=== PATIENT | male | born 1945 | race Caucasian/White ===

== ENCOUNTER 2023-07-02 13:21 | Emergency (ER) | payer MEDICARE, SELFPAY ==
[2023-07-02 13:32] VITALS: BP 138/69
[2023-07-02 14:19] VITALS: BMI 31.1
[2023-07-02 14:20] LABS: % Basophils 0.8 % (0-2); % Eosinophils 0.7 % (0-6); % Immature Granulocytes 0.3 % (0-0.5); % Lymphocytes 30.9 % (20.5-51.1); % Monocytes 7.9 % (1.7-9.3); % Neutrophils 59.4 % (42.2-75.2); Absolute Basophils 0.1 10^3/uL (0-0.2); Absolute Lymphocytes 1.9 10^3/uL (1.2-3.4); Absolute Monocytes 0.5 10^3/uL (0.1-0.6); Absolute Neutrophils 3.6 10^3/uL (1.4-6.5); Hemoglobin 14.6 g/dL (13.0-18.0); Mean Corp Hgb Conc. 36.5 g/dL (33.0-37.0); Mean Corpuscular Hgb 32.4 pg (27.0-31.0); Mean Corpuscular Volume 88.9 fL (80.0-94.0); Mean Platelet Volume 9.3 fL (7.4-10.4); Nucleated Red Blood Cells % 0 % (-); Platelet Count 174 10^3/uL (130-400); Red Cell Dist. Width 12.6 % (11.5-14.5); White Blood Cell Count 6.1 10^3/uL (4.8-10.8)
--- NOTE | 2023-07-02 14:26 | ED.GENMED ---
History of Present Illness
<Eden Marti PA-C - Last Filed: 07/02/23 19:08>
General
Chief Complaint: Fainting/Passed Out
Source: patient
Exam Limitations: none
Time Seen by Provider: 07/02/23 13:48
Nursing documentation reviewed up to this point in time: agreed with
Travel History
Have you had any contact with someone who has COVID-19?: No
Do you have any symptoms of coronavirus? Fever > 100 degrees, chills, cough, shortness of breath, sore throat, loss of taste or smell, muscle aches, or headache?: No
History of Present Illness
History of Present Illness:
pt is a 78 y/o M with ho moderate (followed by JONELLE osorio)
here with syncope x 2
pt says at 5 am he returned from using the bathroom and felt lightheaded and thinks he passed out into the bed, so no injury; he says he went to sleep and a little while later turned over in the bed and felt almost a near syncope like feeling of
nearly passing out
his who was next to him was unaware of these 2 events. he ahd no preceding cp, sob, headache, vision changes and now he feels well
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
no cp, sob, vomiting, diarrhea
he has been taking some 'natural laxative' to help with constipation the past few days
he isn't sure what it is
he hasn't had diarrhea from it
otherwise eaitng/drinkign normally and no deydration symptoms
Past History
<Eden Marti PA-C - Last Filed: 07/02/23 19:08>
Past History
ED Past Medical History: Hypercholesterolemia and Other (Artificial left eye)
ED Past Surgical History: Orthopedic
Social History
Tobacco: Non-smoker
Personal:
Employment: Retired
Family History
Family History: Other
Review of Systems
<Eden Marti PA-C - Last Filed: 07/02/23 19:08>
Review of Systems
Allergies reviewed?: Yes
All Other Systems: Not applicable
Phy Exam
<Eden Marti PA-C - Last Filed: 07/02/23 19:08>
Physical Exam
Physical Exam:
GENERAL: Alert , in no apparent distress
EYE: LEFT EYE PROSTHESIS
NECK: Supple
ENT: o/p clr, mmm.
CARDIAC + SYSTOLIC MURMUR 2/6
IRREGULAR
NO EDEMA
LUNGS: Clear breath sounds bilaterally, no acute respiratory distress, no wheezes/rales/rhonchi
ABDOMEN: Soft, without focal tenderness, no r/g, no cvat, normal bowel sounds
NEUROLOGICAL: Alert and oriented, no focal neuro deficits
SKIN: Warm and dry, skin intact.
MUSCULOSKELETAL: No edema, well perfused. neg minnie's sign
PSYCH: Normal and appropriate interaction.
Course
<Eden Marti PA-C - Last Filed: 07/02/23 19:08>
Orders/Labs/Results
Orders:
Orders
07/02/23 13:35
EKG [Electrocardiogram (*1)] Urgent
Reason for Study: Vertigo / Dizzy
07/02/23 13:36
EKG- Treatment ONCE
07/02/23 14:11
Complete Blood Count/With Diff Urgent
Comprehensive Metabolic Panel Urgent
Magnesium Urgent
Comment: ADD ON
TSH Reflex To Free T4 Urgent
Comment: ADD ON
Troponin I Urgent
07/02/23 14:30
Add On- LAB Urgent
Tests Added?: magnesium
07/02/23 14:38
Orthostatic VS- Treatment ONCE
07/02/23 14:39
Add On- LAB Urgent
Tests Added?: tsh free t4
07/02/23 14:46
0.9% Sodium Chloride 500 ml [Nss] 500 ml IV BOLUS
Abnormal Lab Results
07/02/23
14:11
RBC 4.50 L 10^6/uL
(4.70-6.10)
MCH 32.4 H pg
(27.0-31.0)
Carbon Dioxide 20 L mmol/L
(22-30)
BUN 27 H mg/dl
(9-20)
07/02/23 14:11
07/02/23 14:11
Vital Signs
Initial and Last Documented VS:
Initial Vital Signs
Temp Pulse Resp BP Pulse Ox
98.7 F 72 18 138/69 95
07/02/23 13:32 07/02/23 13:32 07/02/23 13:32 07/02/23 13:32 07/02/23 13:32
Last Documented Vital Signs
Temp Pulse Resp BP Pulse Ox
98.7 F 64 26 132/79 97
07/02/23 13:32 07/02/23 16:00 07/02/23 16:00 07/02/23 16:00 07/02/23 16:00
<Omid Grant, DO - Last Filed: 07/02/23 16:23>
Orders/Labs/Results
Orders:
Orders
07/02/23 13:35
EKG [Electrocardiogram (*1)] Urgent
Reason for Study: Vertigo / Dizzy
07/02/23 13:36
EKG- Treatment ONCE
07/02/23 14:11
Complete Blood Count/With Diff Urgent
Comprehensive Metabolic Panel Urgent
Magnesium Urgent
Comment: ADD ON
TSH Reflex To Free T4 Urgent
Comment: ADD ON
Troponin I Urgent
07/02/23 14:30
Add On- LAB Urgent
Tests Added?: magnesium
07/02/23 14:38
Orthostatic VS- Treatment ONCE
07/02/23 14:39
Add On- LAB Urgent
Tests Added?: tsh free t4
07/02/23 14:46
0.9% Sodium Chloride 500 ml [Nss] 500 ml IV BOLUS
Abnormal Lab Results
07/02/23
14:11
RBC 4.50 L 10^6/uL
(4.70-6.10)
MCH 32.4 H pg
(27.0-31.0)
Carbon Dioxide 20 L mmol/L
(22-30)
BUN 27 H mg/dl
(9-20)
07/02/23 14:11
07/02/23 14:11
Vital Signs
Initial and Last Documented VS:
Initial Vital Signs
Temp Pulse Resp BP Pulse Ox
98.7 F 72 18 138/69 95
07/02/23 13:32 07/02/23 13:32 07/02/23 13:32 07/02/23 13:32 07/02/23 13:32
Last Documented Vital Signs
Temp Pulse Resp BP Pulse Ox
98.7 F 64 26 132/79 97
07/02/23 13:32 07/02/23 16:00 07/02/23 16:00 07/02/23 16:00 07/02/23 16:00
<Eden Marti PA-C - Last Filed: 07/02/23 19:08>
MDM/Problems Addressed
Differential Diagnosis Includes:
near syncope, vasovagal episode, dizziness
MDM/Problems Addressed:
78 y/o M with near syncope today - after walking to the bathroom and back tob ed
do not suspect full LOC
also felt lightheaded while turning in bed
now feels wel
has h/o PVCs frequently and doesn't feel symptoms from them
also has moderate
pt is well appearing
with orthostatic testing, pt did have elevated HR with standing, but bp did ont drop
givne ivf
labs apprecaited, mag normal, tsh normal, trop neg
seen by dr. grant
felt stable for d/c unlikely to be concerning dysrhtyhmia causing near syncope
fu with cards
<Eden Marti PA-C - Last Filed: 07/02/23 19:08>
*Critical Care Note
Total Time (30-74mins, 75-104mins- exclusive of procedures): Not Applicable
ED Attending Note
<Eden Marti PA-C - Last Filed: 07/02/23 19:08>
-
Portions of this chart may have been created with voice recognition software.� Occasional wrong word or��sound alike� substitutions may have occurred due to the inherent limitations of voice recognition software.
<Omid Grant DO - Last Filed: 07/02/23 16:23>
ED Attending Note
Patient seen and examined by attending physician: Yes
I performed the substantive portion of visit, reviewed & personally made and approve the management plan that is documented in note by myself or EMILY.: Yes
Discharge Plan
Departure
Patient Disposition: Home (Routine Discharge)
Date of Disposition: 07/02/23
Time of Disposition: 16:27
Patient with high blood pressure during this ER visit?: No
Condition: Fair
Covid-19: Not Applicable
Discharge Problem:
Near syncope, Premature ventricular contractions (PVCs) (VPCs)
Instructions: Palpitations (DC), Near Fainting (DC)
Prescriptions:
No Action
atorvastatin 80 mg Tablet
80 mg PO HS
levothyroxine [L-Thyroxine] 50 mcg Tablet
50 mcg PO DAILY
diltiazem HCl 120 mg Tablet Extended Release 24 Hr
120 mg PO DAILY
[place] Oil Capsule
2,000 mg PO DAILY
Glucosamine Chondroitin
2 tab PO DAILY
Referrals:
Charissa Lewis, [Family Provider] - Follow up in 2-3 days
Activity Restrictions/Additional Instructions:
YOUR BLOOD WORK WAS REASSURING
YOU HAD FREQUENT PVCS (EXTRA BEATS) BUT NO SIGNS OF CONCERNING DYSRHYTHMIA. WE GAVE YOU SOME FLUIDS IN CASE YOU WERE SLIGHTLY DEHYDRATED
BE SURE TO SIT ON THE SIDE OF THE BED BEFORE GETTING UP QUICKLY
FOLLOW UP WITH JONELLE OSORIO
RETURN FOR REPEATED EPISODES, VOMITING, CHEST PAIN, SHORTNESS OF BREATH, OR ANY CONCERNS.
AVOID THE LAXATIVE IN CASE THIS IS CAUSING PROBLEMS.
Interventions
Interventions:
*Risk Screen - Suicide Last Done: 07/02/23 14:52
*General Assessment Last Done: 07/02/23 13:32
*Neglect/Abuse Screening Last Done: 07/02/23 14:52
ED- Fall Risk Assessment Last Done: 07/02/23 16:42
*ED COVID-19 Vaccine History Last Done: 07/02/23 13:32
*Nursing Disposition Last Done: 07/02/23 16:42
ED- Cardiac Assessment Last Done: 07/02/23 14:08
ED- Neurological Assessment Last Done: 07/02/23 14:08
Discharge Date and Time
Discharge Date/Time: 07/02/23 16:43
[2023-07-02 14:31] LABS: ALT (SGPT) 25 U/L (0-50); AST (SGOT) 24 U/L (17-59); Albumin 4.2 g/dl (3.5-5.0); Alkaline Phosphatase 71 U/L (38-126); Blood Urea Nitrogen 27 mg/dl (9-20); Calcium 9.4 mg/dl (8.4-10.2); Carbon Dioxide 20 mmol/L (22-30); Chloride 106 mmol/L (98-107); Estimated Creatinine Clearance 79 ml/min; Glucose 92 mg/dl (70-99); Potassium 4.2 mmol/L (3.5-5.1); Sodium 137 mmol/L (135-145); Total Bilirubin 0.9 mg/dl (0.2-1.3); Total Protein 6.8 g/dl (6.3-8.2); eGFR > 60.00
[2023-07-02 14:43] VITALS: BP 126/69; BP 135/77; BP 136/63; PULSE 60; PULSE 67; PULSE 80
[2023-07-02 14:43] LABS: Troponin I < 0.012 ng/ml
[2023-07-02 14:47] LABS: Magnesium 2.1 mg/dl (1.6-2.3)
[2023-07-02] MEDS: NSS 500 IV (14:49)
[2023-07-02 15:00] VITALS: BP 126/71
[2023-07-02 15:54] LABS: TSH Reflex To Free T4 2.64 uIU/ml (0.47-4.68)
[2023-07-02 16:00] VITALS: BP 132/79
== END 2023-07-02 16:43 | disposition home or self-care (01) ==
LOC: EMR 13:21
PROVIDERS: EMERGENCY PHYSICIAN Emergency Medicine; FAMILY PHYSICIAN Family Medicine
DX: R55 Syncope and collapse (principal); I49.3 Ventricular premature depolarization
CPT/HCPCS: 99284; 80053; 83735; 84443; 84484; 85025; 93005

== ENCOUNTER → 2024-04-25 12:54 | Outpatient (REF) | payer MEDICARE, SELFPAY | LOC: RCS 12:54 | PROVIDERS: ATTENDING PHYSICIAN Internal Medicine Cardiovascular Disease; FAMILY PHYSICIAN Family Medicine | DX: I35.0 Nonrheumatic aortic (valve) stenosis (principal); E78.2 Mixed hyperlipidemia; I49.3 Ventricular premature depolarization | CPT/HCPCS: 93306 ==